=== PATIENT | female | born 1985 | race Caucasian/White ===

== ENCOUNTER 2023-01-13 02:39 | Emergency (ER) | payer MEDICAID ==
[2023-01-13] MEDS ORDERED: Iopamidol 612 MG/ML 100 ML Bottle IVPUSH STA (03:16)
[2023-01-13] MEDS ORDERED: Sodium Chloride 0.9% 10 ML Syringe FLUSH PRN (03:19)
[2023-01-13] MEDS ORDERED: Sodium Chloride 0.9% 1,000 ML IV ONE (03:19)
[2023-01-13] MEDS ORDERED: Ondansetron 4 MG/2 ML SDV IVPUSH PRN (03:34)
[2023-01-13] MEDS: HYDROmorphone 0.5 MG/0.5 ML Syringe IVPUSH PRN ×2 (03:40→05:15)
[2023-01-13 03:51] LABS: ANION GAP 9.1 meq/L (7-15); CHLORIDE,CL 103 mmol/L (98-107); ESTIMATED GFR 86 mL/min (>=60); SODIUM,NA 138 mmol/L (136-145)
== END 2023-01-13 05:34 | disposition home or self-care (01) ==
LOC: LL.ED 02:39
DX: K80.20 Calculus of gallbladder without cholecystitis without obstruction (principal); Z88.1 Allergy status to other antibiotic agents
CPT/HCPCS: 36415; 74177; 80053; 81001; 81025; 83605; 83690; 85025; 87040; 99284; J1170; J2405; J7030; Q9967

== ENCOUNTER 2023-04-04 03:28 | Emergency (ER) | payer MEDICAID ==
[2023-04-04] MEDS ORDERED: Sodium Chloride 0.9% 1,000 ML IV ONE (03:52)
[2023-04-04] MEDS ORDERED: Sodium Chloride 0.9% 10 ML Syringe FLUSH PRN (03:52)
[2023-04-04] MEDS ORDERED: Ondansetron 4 MG/2 ML SDV IVPUSH ONE (03:53)
[2023-04-04] MEDS ORDERED: Naloxone 0.4 MG/ML SDV IVPUSH PRN (03:53)
[2023-04-04] MEDS ORDERED: Morphine 4 MG/ML Syringe IVPUSH ONE (03:53)
[2023-04-04 04:05] LABS: BASOPHILS ABSOLUTE AUTO 0.02 K/uL (0.00-0.20); BASOPHILS PERCENT AUTO 0.2 % (0.0-2.0); EOSINOPHILS ABSOLUTE AUTO 0.07 K/uL (0.00-0.50); EOSINOPHILS PERCENT AUTO 0.7 % (0.0-5.0); HEMOGLOBIN 13.2 g/dL (11.7-15.5); LYMPHOCYTES ABSOLUTE AUTO 1.22 K/uL (0.50-3.50); LYMPHOCYTES PERCENT AUTO 12.9 % (10.0-50.0); MEAN CORPUSCULAR VOLUME 90.9 fL (84.0-98.0); MONOCYTES ABSOLUTE AUTO 0.59 K/uL (0.00-1.00); MONOCYTES PERCENT AUTO 6.2 % (2.0-14.0); NEUTROPHILS ABSOLUTE AUTO 7.56 K/uL (1.40-7.00); PLATELET COUNT,PLT 213 K/uL (150-350); RED CELL DISTRIBUTION WIDTH 13.7 % (11.2-14.1); WHITE BLOOD CELL COUNT,WBC 9.5 K/uL (4.0-10.2)
[2023-04-04] MEDS ORDERED: Take Home: oxyCODONE HCl 5 MG Tab, 5 Tab Pack PO ONE (05:31)
[2023-04-04 06:17] LABS: ANION GAP 12.9 meq/L (7-15); CALCIUM 9.2 mg/dL (8.5-10.1); CARBON DIOXIDE,CO2 24.1 mmol/L (21.0-32.0); CREATININE 0.88 mg/dL (0.51-1.17); POTASSIUM,K 4.6 mmol/L (3.5-5.1)
== END 2023-04-04 05:42 | disposition home or self-care (01) ==
LOC: LL.ED 03:28
DX: K80.20 Calculus of gallbladder without cholecystitis without obstruction (principal); Z88.2 Allergy status to sulfonamides; Z88.8 Allergy status to other drugs, medicaments and biological substances
CPT/HCPCS: 36415; 80048; 82150; 83690; 85025; 96361; 96374; 96375; 99283; 99284; A9270; J2270; J2405; J7030